=== PATIENT | male | born 1970 | race Caucasian/White ===

== ENCOUNTER 2017-03-27 11:23 | Emergency (ER) | payer SELFPAY ==
[~2017-03-27] VITALS: Ht 180.3 cm; Wt 86.0 kg
[2017-03-27] MEDS ORDERED: IBUPROFEN 800 MG TABLET PO ONE (13:00)
[2017-03-27 14:10] VITALS: BP 118/75
== END 2017-03-27 15:06 | disposition home or self-care (01) ==
LOC: EMS 11:26
DX: S52.501A Unspecified fracture of the lower end of right radius, initial encounter for closed fracture (principal); V43.52XA Car driver injured in collision with other type car in traffic accident, initial encounter; Y93.89 Activity, other specified; Y92.89 Other specified places as the place of occurrence of the external cause; Y99.8 Other external cause status
CPT/HCPCS: 99284